=== PATIENT | male | born 1975 | race Caucasian/White ===

== ENCOUNTER 2017-12-07 07:02 | Emergency (ER) | payer SELFPAY ==
[~2017-12-07] VITALS: Ht 185.4 cm; Wt 128.0 kg
[2017-12-07] MEDS ORDERED: DEXAMETHASONE 4 MG TABLET PO ONE (07:30)
[2017-12-07] MEDS ORDERED: ALBUTEROL SULFATE 2.5 MG/3 ML NPPB SCH (07:30)
[2017-12-07] MEDS ORDERED: ASPI-496 PO (07:32)
[2017-12-07] MEDS ORDERED: ALBU90AE INH (07:32)
[2017-12-07] MEDS ORDERED: FLUT1BLS INH (07:32)
[2017-12-07] MEDS ORDERED: DEXAMETHASONE 4 MG TABLET ONE (07:34)
[2017-12-07] MEDS ORDERED: ALBUTEROL SULFATE 2.5 MG/3 ML ONE (07:49)
[2017-12-07 08:59] VITALS: BP 144/95
== END 2017-12-07 09:00 | disposition home or self-care (01) ==
LOC: ED 08:45
DX: J45.41 Moderate persistent asthma with (acute) exacerbation (principal); I10 Essential (primary) hypertension
CPT/HCPCS: 93005; 94640; 99283; J7613

== ENCOUNTER 2018-03-06 06:21 | Emergency (ER) | payer SELFPAY ==
[~2018-03-06] VITALS: Ht 188 cm; Wt 131.0 kg
[~2018-03-06 06:21] MED LIST: ALBU90AE INH; ASPI-496 PO; FLUT1BLS INH
[2018-03-06] MEDS ORDERED: ALBUTEROL SULFATE 2.5 MG/3 ML ONE ×2 (06:43→06:55)
[2018-03-06] MEDS: ALBUTEROL/IPRATROPIUM 2.5MG/0.5MG, 3 ML NPPB SCH ×2 (06:49→07:00)
[2018-03-06] MEDS ORDERED: ALBUTEROL SULFATE 2.5 MG/3 ML NPPB ONE (07:00)
[2018-03-06 07:41] VITALS: BP 136/92
== END 2018-03-06 07:46 | disposition home or self-care (01) ==
LOC: ED 07:30
DX: J45.51 Severe persistent asthma with (acute) exacerbation (principal); I10 Essential (primary) hypertension
CPT/HCPCS: 93005; 94640; 99284; J7512; J7613; J7620; 99283

== ENCOUNTER 2018-04-12 20:38 | Emergency (ER) | payer SELFPAY ==
[~2018-04-12] VITALS: Ht 188 cm; Wt 110.0 kg
[2018-04-12] MEDS ORDERED: IPRATROPIUM 0.5 MG/2.5 ML INHA NPPB ONE (21:00)
[2018-04-12] MEDS ORDERED: IPRATROPIUM 0.5 MG/2.5 ML INHA ONE (21:14)
[2018-04-12 21:16] LABS: BASOPHILS # (AUTO) 0.04 x10^3/uL (0-0.1); BASOPHILS % (AUTO) 0 % (0-1); EOSINOPHILS # (AUTO) 0.82 x10^3/uL (0-0.4); EOSINOPHILS % (AUTO) 7 % (1-7); LYMPHOCYTES # (AUTO) 2.48 x10^3/uL (1-3.4); LYMPHOCYTES % (AUTO) 20 % (22-44); MD NO; MEAN CORPUSCULAR HEMOGLOBIN 30.3 pg (27.5-34.5); MEAN CORPUSCULAR HGB CONC 34.2 g/dL (33.2-36.2); MEAN CORPUSCULAR VOLUME 88.7 fL (81-97); MEAN PLATELET VOLUME 8.3 fL (7.4-10.4); MONOCYTES # (AUTO) 0.53 x10^3/uL (0.2-0.8); MONOCYTES % (AUTO) 4 % (2-9); NEUTROPHILS # (AUTO) 8.38 x10^3/uL (1.8-6.8); NEUTROPHILS % (AUTO) 68 % (42-75); PLATELET COUNT 303 x10^3/uL (130-400); RED CELL DISTRIBUTION WIDTH 13.9 % (9.4-14.8)
[2018-04-12 21:29] LABS: ANION GAP 11 mmol/L (5-15); CHLORIDE 111 mmol/L (98-107); CREATININE 1.22 mg/dL (0.7-1.3)
[2018-04-12 21:33] LABS: TROPONIN I 0.017 ng/mL (0.000-0.045)
[2018-04-12 22:08] VITALS: BP 158/76
== END 2018-04-12 22:50 | disposition home or self-care (01) ==
LOC: ED 21:36
DX: J45.51 Severe persistent asthma with (acute) exacerbation (principal); I10 Essential (primary) hypertension
CPT/HCPCS: 36415; 71045; 80048; 82040; 84484; 85025; 93005; 94640; 99285; J7512; J7644

== ENCOUNTER 2019-04-02 10:45 | Emergency (ER) | payer SELFPAY ==
[~2019-04-02] VITALS: Ht 185.4 cm; Wt 134.0 kg
--- NOTE | 2019-04-02 11:01 | NUR ---
PT TO ED FOR SOB AND WHEEZING X "2-3 WEEKS." PT STATES RAN OUT OF ASTHMA MEDS ABOUT 3 WEEKS AGO AND D/T CHANGE IN INS, UNABLE TO REFILL. PT STATES NEB TX AT HOME DID NOT HELP. PT CONNECTE DTO MONIOTRS. VSS. MILD RESP DISTRESS NOTED. NO O2 NEEDED AT THIS TIME. TO BS FOR ASSESSMENT. AWAITING ORDERS.
[2019-04-02] MEDS ORDERED: ALBUTEROL/IPRATROPIUM 2.5MG/0.5MG, 3 ML ONE (11:10)
--- NOTE | 2019-04-02 11:11 | NUR ---
pt medicated per mar. vss. no needs expressed. call light within reach. xr at bs at this time. awaiting results and rt tx.
--- NOTE | 2019-04-02 11:12 | NUR ---
rt to bs for tx.
[2019-04-02] MEDS ORDERED: ALBUTEROL/IPRATROPIUM 2.5MG/0.5MG, 3 ML NPPB ONE (11:30)
[2019-04-02 12:17] VITALS: BP 176/110
--- NOTE | 2019-04-02 12:18 | NUR ---
pt resting in room. vss. no needs expressed. call light within reach. plan to dc.
== END 2019-04-02 12:39 | disposition home or self-care (01) ==
LOC: ED 11:36
DX: J45.41 Moderate persistent asthma with (acute) exacerbation (principal); I10 Essential (primary) hypertension
CPT/HCPCS: 71045; 93005; 94640; 99283; J7512; J7620